=== PATIENT | male | born 1975 | race Caucasian/White ===

== ENCOUNTER 2017-01-15 19:30 | Emergency (ER) | payer MEDICARE ==
[2017-01-15 20:39] LABS: RED BLOOD COUNT 4.94 M/UL (4.20-5.50); WHITE BLOOD COUNT 15.8 K/UL (4.5-11.0)
[2017-01-15 20:56] LABS: BUN/CREATININE RATIO 11 (0-10)
== END 2017-01-15 22:08 | disposition home or self-care (01) ==
LOC: ER1 19:30
PROVIDERS: Specialist/Technologist Athletic Trainer
DX: L03.211 Cellulitis of face (principal); K02.9 Dental caries, unspecified; F17.210 Nicotine dependence, cigarettes, uncomplicated; Z88.8 Allergy status to other drugs, medicaments and biological substances
CPT/HCPCS: 36415; 70487; 80048; 85025; 86140; 87040; 96374; 99284; J7030; J7050; Q9962